=== PATIENT | male | born 1995 | race American Indian/Alaskan Native ===

== ENCOUNTER 2017-02-08 12:19 | Emergency (ER) | payer MEDICAID, MEDICARE, OTHER ==
[2017-02-08] MEDS ORDERED: ATIVAN IM PRN (12:58)
[2017-02-08] MEDS ORDERED: BENADRYL IM PRN (12:58)
[2017-02-08] MEDS ORDERED: HALDOL IM PRN (12:58)
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
[2017-02-08] MEDS ORDERED: XYLOCAINE 1% 20 mL ONE (16:25)
[2017-02-08] MEDS ORDERED: XYLOCAINE 2% INFILTRATI ONE (16:25)
[2017-02-08] MEDS ORDERED: NACL 0.9% 500 ML IR ONE (16:26)
[2017-02-08] MEDS ORDERED: MARCAINE 0.25% INFILTRATI ONE (16:35)
[2017-02-08] MEDS ORDERED: ANTIBIOTIC OINT TP ONE (18:00)
[2017-02-08 19:38] VITALS: BP 124/73
== END 2017-02-08 21:43 ==
LOC: ED 12:19
DX: S01.81XA Laceration without foreign body of other part of head, initial encounter (principal); W01.0XXA Fall on same level from slipping, tripping and stumbling without subsequent striking against object, initial encounter; Y93.89 Activity, other specified; Y92.89 Other specified places as the place of occurrence of the external cause; Y99.8 Other external cause status
CPT/HCPCS: 12013; 70450; 72125; 99284; J1200; J1630